=== PATIENT | female | born 1940 | race Caucasian/White ===

== ENCOUNTER 2016-05-08 11:45 | Emergency (ER) | payer MEDICARE, OTHER ==
[~2016-05-08] VITALS: Ht 162.6 cm; Wt 75.9 kg
[2016-05-08 11:49] VITALS: BP 128/66; PULSE 79; RESP 16; O2SAT 98
--- NOTE | 2016-05-08 12:10 | ED.REPORT ---
HPI-Chest Pain 40 and Over Date of Service May 08, 2016 ED Provider: History of Present Illness: 75-year-old female here for intermittent chest pain 2 weeks. IT occurs when lying flat at night. Also at night she gets episodes of dizziness and nausea. The dizziness at night is not new for her, she has a history of vertigo and post concussive syndrom. The nausea was more intense last night. The chest pain is described as a tightness and it is across the sternum, no radiation. She does not feel shortness of breath, palpitations, increasing fatigue or exercise intolerance. She also felt diaphoretic during her vertigo last night; this sometimes occurs with her BPPV. She is a nonsmoker, no Hx VA or blood clots. She notes that she has been doing upper arm exercises, and hunching at her computer more. PCP Dr Sullivan Nursing Notes Stated Complaint: CHEST PAIN/SOB Chief Complaint: Chest Pain Nursing Notes Reviewed: Yes Allergies: Coded Allergies: Penicillins (Unverified Adverse Reaction, Severe, Anaphylaxis, 10/15/15) General Time Seen by MD: 12:10 Chief Complaint Chest pain, Nausea, Vomiting Hx Obtained From: Patient, Spouse Arrived By: Walk-in Sudden in Onset?: No Onset Occurred: More than a week ago... (2 weeks) Symptom Duration: Waxes and wanes Location: : Substernal Radiation: : Does not radiate Migration/Movement: Reports: None Severity: Current: No pain currently Associated with: Reports: Nausea Pertinent Negative: Pt denies other symptoms Similar Sx Previous: No Risk Factors Risk Notes: no hx VA, PE. NON smoker Past Medical History Past Medical History Healthy Past Surgical History Lumbar surgery Smoking History Never Smoker Social History Alcohol Use: 1-3 per week Drug Use: Denies drug use Other Social History: Good social support, Occupation lives in one story house 5 steps into the house Review of Systems Review of Systems Note: intermittent chest tightness at night x 2 weeks. Occurs with her usual vertigo symptoms she has been having x months. Last night nausea was more severe and was diaphoretic. Basic Review of Systems Eyes: Vision NL ENT: Hearing NL Allergy / Immune: No allergy Constitutional: Denies: Chills, Fatigue, Fever Respiratory: Denies: Dyspnea on exertion, Non-productive cough, Shortness of breath, Wheezing Cardiovascular: Reports: Chest pain, Denies: Dyspnea on exertion, Parox nocturnal dyspnea GI: Reports: Nausea, Denies: Abdominal pain Musculoskeletal: Denies: Back pain Complete sys rev & neg: except as marked. Physical Exam Initial Vital Signs Vital Signs (First) Date Time Temp Pulse Resp B/P Pulse Ox O2 Delivery O2 Flow Rate FiO2 05/08/16 11:49 36.5 79 16 128/66 98 Room Air Initial VS: Reviewed Head / Eyes: Atraumatic, Normocephalic, PERRL ENT: Mucous membranes moist, Conjunctiva normal Neck: Supple Lymphatic: No lymphadenopathy Skin: Warm, Dry, No cyanosis Neurologic: Alert, Oriented, Nonfocal Psychiatric: Mood/affect normal, Behavior normal, Normal thought content General/Constitutional: Awake, Alert, No acute distress Respiratory / Chest: Atraumatic, Breath sounds NL, Breath sounds = bilat, No respiratory distress Cardiovascular: Heart rate NL, Regular rhythm, Heart sounds NL, No gallop, No murmurs, No rubs, Cap refill not delayed chest tenderness, mild Abdomen: Atraumatic, Soft, Non-tender Back: Atraumatic, Inspection NL, Non-tender Interpretation & Diagnostics Lab Results Interpretation Result Diagram: 05/08/16 1207 05/08/16 1207 Test 05/08/16 12:07 White Blood Count 7.9th/mm3 (3.8-10.1) Red Blood Count 4.47mil/mm3 (3.90-5.20) Hemoglobin 14.3g/dL (12.0-15.6) Hematocrit 43.3% (35.0-46.0) Mean Corpuscular Volume 96.9fL (81-100) Mean Corpuscular Hemoglobin 32.0pg (27.0-35.0) Mean Corpuscular Hemoglobin Concent 33.0% (32.0-37.0) Red Cell Distribution Width 12.8% (12.3-15.4) Platelet Count 217bil/L (150-400) Neutrophils (%) (Auto) 59.8% (40-74) Lymphocytes (%) (Auto) 34.1% (14-46) Monocytes (%) (Auto) 5.4% (4-12) Eosinophils (%) (Auto) 0.5% (0-5) Basophils (%) (Auto) 0.1% (0-3) Sodium Level 142mEq/L (134-144) Potassium Level 4.0mEq/L (3.5-5.2) Chloride Level 101mEq/L (97-108) Carbon Dioxide Level 28mmol/L (18-29) Blood Urea Nitrogen 20mg/dL (8-27) Creatinine 0.49mg/dL (0.57-1.00) Estimat Glomerular Filtration Rate 177mL/min (>59) Glucose Level 86mg/dL (60-99) Calcium Level 9.5mg/dL (8.5-10.1) Magnesium Level 2.3mg/dL (1.6-2.6) Total Bilirubin 0.3mg/dL (0.0-1.2) Aspartate Amino Transf (AST/SGOT) 20U/L (0-50) Alanine Aminotransferase (ALT/SGPT) 16U/L (0-32) Alkaline Phosphatase 80U/L (25-165) Troponin T 0.010ug/L (0.0-0.011) Total Protein 8.2g/dL (6.4-8.4) Albumin 4.4g/dL (3.4-5.0) Hold [place] Top Tube Received (Received) Re-Eval/Medical Decision Med Decision/Clinical Course Discussed case with Dr. carlos celaya. Negative workup today. Patient vital signs have been stable throughout the exam and she has not had any recurrent chest pain during her stay here. Likely musculoskeletal in origin. Follow up with her PCP as discussed Discharge & Departure Shift Change Sign-Out Laboratory Evaluation: Lab evaluation discussed Imaging Studies: Imaging discussed Response to Therapy: Unchanged Primary Impression: Non-cardiac chest pain Additional Impression: BPPV (benign paroxysmal positional vertigo) Laterality: unspecified laterality Qualified Code: H81.10 - Benign paroxysmal vertigo, unspecified ear Disposition: Home Discharge Condition All VS Reviewed: Yes Condition: Stable Patient Instructions: Chest Pain (ED) Additional Instructions: Follow-up with your primary care provider this week regarding her chest pain and dizziness. Return to ER if her chest pain becomes severe, with shortness of breath, with nausea, or any drastic change in pain or condition. May consider seeing a neurologist for your dizziness. Recommend seeing a automation lead for reevaluation of your chest pain. Referrals: Dmitry Mahoney MD (PCP) EDSupervising Provider for APC: Ariel Echeverria MD Attending Statement Attending attestation: I saw this patient in conjunction with Ave MENDEZ. I agree with the workup , evaluation, treatment and disposition. Ariel Echeverria MD copies to: Ariel Echeverria MD, Linnea K ARNP May 08, 2016 12:10 Ariel cEheverria MD May 08, 2016 13:19
[2016-05-08 12:21] LABS: BASOPHILS % (AUTO) 0.1 % (0-3); EOSINOPHILS % (AUTO) 0.5 % (0-5); MONOCYTES % (AUTO) 5.4 % (4-12); Mean Corpuscular Volume 96.9 fL (81-100); NEUTROPHILS % (AUTO) 59.8 % (40-74); Platelet Count 217 bil/L (150-400)
--- NOTE | 2016-05-08 12:29 | DRSVH ---
PROCEDURE: X-RAY CHEST ONE VIEW, PORTABLE ([id number]) INDICATIONS: 75 year-old female with chest pain. TECHNIQUE: One view of the chest was acquired. COMPARISON: None. FINDINGS: Surgical changes and devices: None. Lungs and pleura: No pleural effusions or pneumothorax. Lungs are clear. Mediastinum: Mediastinal contours appear normal. Heart size is normal. Bones and chest wall: No suspicious bony lesions. Overlying soft tissues appear unremarkable. IMPRESSION: No acute cardiopulmonary disease. Dictated by: Kiet Prescott M.D. on 05/08/2016 at 12:27 Approved by: Kiet Prescott M.D. on 05/08/2016 at 12:27
[2016-05-08 12:53] LABS: TROPONIN T 0.01 ug/L (0.0-0.011)
[2016-05-08 13:04] LABS: Magnesium 2.3 mg/dL (1.6-2.6)
[2016-05-08 13:16] VITALS: BP 95/40; PULSE 74; RESP 18; O2SAT 96
[2016-05-08 13:48] VITALS: BP 95/40; PULSE 74; RESP 18; O2SAT 96
== END 2016-05-08 13:49 | disposition home or self-care (01) ==
LOC: SED 11:45
DX: R07.89 Other chest pain (principal); H81.10 Benign paroxysmal vertigo, unspecified ear; R11.0 Nausea; Z87.820 Personal history of traumatic brain injury; Z88.0 Allergy status to penicillin